=== PATIENT | male | born 1970 | race Caucasian/White ===

== ENCOUNTER 2021-11-11 20:16 | Inpatient (IN) ==
[2021-11-11] MEDS ORDERED: *HR* HYDROcodone/Acet 5/325 mg TABLET PO PRN (22:58)
[2021-11-11] MEDS ORDERED: Naloxone 0.4 MG/ML INJ IVP PRN (22:58)
[2021-11-11] MEDS ORDERED: D5% in Water 1,000 ML IVC PRN (23:05)
[2021-11-11] MEDS ORDERED: Dextrose Gel 15 GM/37.5 ML TUBE PO PRN ×2 (23:05)
[2021-11-11] MEDS ORDERED: *HR* Dextrose 50 % in Water (Syg) 50 ML SYRINGE IVP PRN (23:05)
[2021-11-11] MEDS ORDERED: Insulin DETEMIR 100 UNIT/ML X5UNITS SUBQ SCH (23:45)
[2021-11-12] MEDS: Melatonin 3 MG TABLET PO PRN ×2 (00:10→21:01)
[2021-11-12] MEDS: NIFEdipine XL (24 HR) 60 MG TAB.ER.24 PO SCH ×2 (00:10→06:19)
[2021-11-12 00:54] LABS: Amphetamine Screen,Urine Negative ng/mL (Cutoff=1000); Barbiturate Screen,Urine Negative ng/mL (Cutoff=200); Benzodiazepines Screen,Urine Negative ng/mL (Cutoff=200); Cannabinoid Screen,Urine Negative ng/mL (Cutoff = 50); Cocaine Screen,Urine Negative ng/mL (Cutoff= 300); Opiate Screen,Urine Negative ng/mL (Cutoff=300); Phencyclidine Screen,Urine Negative ng/mL (Cutoff=25)
[2021-11-12 01:05] LABS: Basophils # 0.1 K/mcL (0.0-0.2); Basophils % 1.2 %; Eosinophils # 0.2 K/mcL (0.0-0.6); Eosinophils % 3.2 %; Hematocrit 31.7 % (37.5-50.1); Hemoglobin 10.4 g/dL (12.9-16.9); Immature Granulocytes % 0.5 % (0-4); Lymphocytes # 1.3 K/mcL (0.6-4.6); Lymphocytes % 23.4 %; Mean Corpuscular HGB Conc 32.8 g/dL (31.6-35.5); Mean Corpuscular Volume 85.2 fL (83.0-100.0); Monocytes # 0.6 K/mcL (0.0-1.3); Neutrophils # 3.5 K/mcL (1.6-8.9); Platelet Count 250 K/mcL (140-400); Red Blood Count 3.72 M/mcL (4.19-5.50); Red Cell Distribution Width 12.8 % (11.5-14.5); Segmented Neutrophils % 61.7 %; White Blood Count 5.7 K/mcL (4.3-11.1)
[2021-11-12 01:14] LABS: INR 0.9; Prothrombin Time 9.7 Seconds (9.4-12.1)
[2021-11-12 01:15] LABS: Creatinine,Urine 25 mg/dL; Microalbumin,Urine > 1350 mg/L; Protein/Creatinine Ratio,Urine 14.24 mg/mg (0.00-0.20); Sodium, Urine 119.1 mEq/L
[2021-11-12 01:16] LABS: Activated Partial Thrombo Time 29.4 Seconds (26.0-36.0)
[2021-11-12 01:17] LABS: Albumin 2.3 g/dL (3.5-5.7); Albumin/Globulin Ratio 0.9 (1.1-2.2); Bilirubin,Total 0.3 mg/dL (0.3-1.0); Calcium 8.5 mg/dL (8.6-10.3); Chol/HDL Ratio 3.6 (0-4.9); Globulin 2.5 g/dL (2.4-3.5); Magnesium 1.8 mg/dL (1.6-2.6); Phosphorous 4.4 mg/dL (2.7-4.5); Potassium 4.9 mEq/L (3.5-5.1); Total Protein 4.8 g/dL (6.4-8.9)
[2021-11-12 01:38] LABS: Estimated Average Glucose 306 mg/dl; Hemoglobin A1C 12.3 %
[2021-11-12] MEDS: Ondansetron 4 MG/2 ML VIAL IVP PRN ×3 (03:20→21:01)
[2021-11-12] MEDS: Acetaminophen 325 MG TABLET PO PRN ×2 (06:22→21:13)
[2021-11-12] MEDS ORDERED: Insulin LISPRO 300 UNITS/3 ML VIAL SUBQ SCH (07:30)
[2021-11-12] MEDS: carvediloL 6.25 MG TABLET PO SCH ×2 (08:11→16:55)
[2021-11-12] MEDS ORDERED: Insulin DETEMIR 100 UNIT/ML X5UNITS SUBQ SCH (09:00)
[2021-11-12 11:33] LABS: Complement C3 109 mg/dL (87-200)
[2021-11-12 11:56] LABS: Vitamin D 25 Hydroxy 9 ng/mL (30-80)
[2021-11-12] MEDS: Insulin LISPRO 300 UNITS/3 ML VIAL SUBQ SCH ×2 (12:11→17:08)
[2021-11-12 12:35] LABS: Hepatitis B Surface Antigen Nonreactive (Nonreactive)
[2021-11-12 13:05] LABS: Hepatitis A Antibody IgM Nonreactive (Nonreactive); Hepatitis B Core IgM Nonreactive (Nonreactive)
[2021-11-12 13:06] LABS: Hepatitis C Virus Antibody Nonreactive (Nonreactive)
[2021-11-12] MEDS: Insulin DETEMIR 100 UNIT/ML X5UNITS SUBQ SCH (21:01)
[2021-11-12] MEDS ORDERED: Prochlorperazine 10 MG/2 ML VIAL IVP ONE (22:15)
[2021-11-13 07:06] LABS: Basophils # 0.1 K/mcL (0.0-0.2); Basophils % 1.2 %; Eosinophils # 0.2 K/mcL (0.0-0.6); Eosinophils % 3.1 %; Hematocrit 32.2 % (37.5-50.1); Hemoglobin 10.7 g/dL (12.9-16.9); Immature Granulocytes % 0.4 % (0-4); Lymphocytes # 0.9 K/mcL (0.6-4.6); Lymphocytes % 17.9 %; Mean Corpuscular HGB Conc 33.2 g/dL (31.6-35.5); Mean Corpuscular Hemoglobin 28.5 pg (28.0-33.3); Mean Corpuscular Volume 85.9 fL (83.0-100.0); Mean Platelet Volume 9.4 fL (9.4-12.4); Monocytes # 0.4 K/mcL (0.0-1.3); Monocytes % 7.2 %; Neutrophils # 3.6 K/mcL (1.6-8.9); Platelet Count 232 K/mcL (140-400); Red Blood Count 3.75 M/mcL (4.19-5.50); Red Cell Distribution Width 12.5 % (11.5-14.5); Segmented Neutrophils % 70.2 %; White Blood Count 5.1 K/mcL (4.3-11.1)
[2021-11-13 07:25] LABS: Calcium 8.6 mg/dL (8.6-10.3); Potassium 5.1 mEq/L (3.5-5.1)
[2021-11-13] MEDS: NIFEdipine XL (24 HR) 60 MG TAB.ER.24 PO SCH (07:30)
[2021-11-13] MEDS: Insulin LISPRO 300 UNITS/3 ML VIAL SUBQ SCH ×3 (07:30→16:51)
[2021-11-13] MEDS: carvediloL 6.25 MG TABLET PO SCH ×2 (07:30→16:52)
[2021-11-13] MEDS: Ondansetron 4 MG/2 ML VIAL IVP PRN ×2 (07:36→22:39)
[2021-11-13] MEDS: Insulin DETEMIR 100 UNIT/ML X5UNITS SUBQ SCH ×2 (07:41→22:41)
[2021-11-13] MEDS ORDERED: Ergocalciferol (VIT D2) 50,000 UNIT (1.25MG) CAP PO SCH (08:30)
[2021-11-13] MEDS ORDERED: hydrALAZINE 25 MG TABLET PO ONE (08:46)
[2021-11-13] MEDS ORDERED: Prochlorperazine 10 MG/2 ML VIAL IVP PRN (08:53)
[2021-11-13] MEDS ORDERED: Acetaminophen/Butalbital/CaffeineTABLET PO PRN (10:40)
[2021-11-13] MEDS ORDERED: 0.9 % Sodium Chloride 500 ML ONE (12:28)
[2021-11-13] MEDS ORDERED: *HR* Midazolam HCl 2 MG/2 ML VIAL ONE (12:38)
[2021-11-13] MEDS ORDERED: *HR* FentaNYL (PF) 100 MCG/2 ML VIAL ONE (12:38)
[2021-11-13] MEDS ORDERED: *HR* FentaNYL (PF) 100 MCG/2 ML VIAL IVP ONE (12:42)
[2021-11-13] MEDS ORDERED: *HR* Midazolam HCl 2 MG/2 ML VIAL IVP ONE (12:42)
[2021-11-13] MEDS: Melatonin 3 MG TABLET PO PRN (21:57)
[2021-11-13] MEDS: Acetaminophen 325 MG TABLET PO PRN (21:57)
[2021-11-13] MEDS: hydrALAZINE 25 MG TABLET PO SCH (21:58)
[2021-11-14 01:35] LABS: Hematocrit 31.3 % (37.5-50.1); Hemoglobin 10.4 g/dL (12.9-16.9); Mean Corpuscular HGB Conc 33.2 g/dL (31.6-35.5); Mean Corpuscular Hemoglobin 28.5 pg (28.0-33.3); Mean Corpuscular Volume 85.8 fL (83.0-100.0); Mean Platelet Volume 9.8 fL (9.4-12.4); Platelet Count 237 K/mcL (140-400); Red Blood Count 3.65 M/mcL (4.19-5.50); Red Cell Distribution Width 12.7 % (11.5-14.5); White Blood Count 5.5 K/mcL (4.3-11.1)
[2021-11-14 02:03] LABS: Calcium 8.4 mg/dL (8.6-10.3); Potassium 5.8 mEq/L (3.5-5.1)
[2021-11-14] MEDS: Insulin LISPRO 300 UNITS/3 ML VIAL SUBQ SCH ×3 (08:22→16:31)
[2021-11-14] MEDS: Insulin DETEMIR 100 UNIT/ML X5UNITS SUBQ SCH ×2 (08:22→22:03)
[2021-11-14] MEDS: NIFEdipine XL (24 HR) 60 MG TAB.ER.24 PO SCH (08:23)
[2021-11-14] MEDS: hydrALAZINE 25 MG TABLET PO SCH ×2 (08:23→22:03)
[2021-11-14] MEDS: carvediloL 6.25 MG TABLET PO SCH ×2 (08:23→16:32)
[2021-11-14 11:13] LABS: ANA IgG by ELISA NONE DETECTED (None Detected)
[2021-11-14] MEDS ORDERED: Mag Hydrox/Al Hydrox/Simeth 30 ML UDC PO PRN (11:38)
[2021-11-14 15:01] LABS: Kappa Qnt Free Light Chains 106.4 mg/L (3.30-19.40); Lambda Qnt Free Light Chains 69.01 mg/L (5.71-26.30)
[2021-11-14] MEDS: Melatonin 3 MG TABLET PO PRN (22:03)
[2021-11-15 06:16] LABS: Hematocrit 28.7 % (37.5-50.1); Hemoglobin 9.5 g/dL (12.9-16.9); Mean Corpuscular HGB Conc 33.1 g/dL (31.6-35.5); Mean Corpuscular Hemoglobin 28.4 pg (28.0-33.3); Mean Corpuscular Volume 85.7 fL (83.0-100.0); Mean Platelet Volume 9.8 fL (9.4-12.4); Platelet Count 221 K/mcL (140-400); Red Blood Count 3.35 M/mcL (4.19-5.50); Red Cell Distribution Width 12.7 % (11.5-14.5); White Blood Count 5.2 K/mcL (4.3-11.1)
[2021-11-15] MEDS: Acetaminophen 325 MG TABLET PO PRN (06:23)
[2021-11-15 06:34] LABS: Calcium 8.2 mg/dL (8.6-10.3); Potassium 5.3 mEq/L (3.5-5.1)
[2021-11-15] MEDS: hydrALAZINE 25 MG TABLET PO SCH ×2 (07:56→19:54)
[2021-11-15] MEDS: carvediloL 6.25 MG TABLET PO SCH ×2 (07:56→15:58)
[2021-11-15] MEDS: NIFEdipine XL (24 HR) 60 MG TAB.ER.24 PO SCH (07:56)
[2021-11-15] MEDS: Insulin DETEMIR 100 UNIT/ML X5UNITS SUBQ SCH ×2 (08:01→19:55)
[2021-11-15] MEDS: Insulin LISPRO 300 UNITS/3 ML VIAL SUBQ SCH ×3 (08:01→15:58)
[2021-11-15 18:43] LABS: ANCA IFA Titer <1:20 (<1:20)
[2021-11-15] MEDS: Melatonin 3 MG TABLET PO PRN (19:54)
[2021-11-16 01:22] LABS: Hematocrit 27.2 % (37.5-50.1); Mean Corpuscular HGB Conc 33.1 g/dL (31.6-35.5); Mean Corpuscular Hemoglobin 28.3 pg (28.0-33.3); Mean Corpuscular Volume 85.5 fL (83.0-100.0); Platelet Count 209 K/mcL (140-400); Red Blood Count 3.18 M/mcL (4.19-5.50); Red Cell Distribution Width 12.3 % (11.5-14.5); White Blood Count 4.8 K/mcL (4.3-11.1)
[2021-11-16 01:38] LABS: Calcium 8.1 mg/dL (8.6-10.3); Potassium 5.4 mEq/L (3.5-5.1)
[2021-11-16 06:29] LABS: ANCA IFA Pattern NONE DETECTED (None Detected); Serine Protease-3 Antibody 2 AU/mL (0-19)
[2021-11-16 07:31] VITALS: BP 165/84; PULSE 81; TEMP 98.2; O2SAT 98
[2021-11-16] MEDS: Insulin LISPRO 300 UNITS/3 ML VIAL SUBQ SCH (07:58)
[2021-11-16] MEDS ORDERED: SODIUM ZIRCONIUM CYCLOSILICATE 5 GM POWD.PACK PO ONE (08:44)
[2021-11-16] MEDS: hydrALAZINE 25 MG TABLET PO SCH (09:10)
[2021-11-16] MEDS: NIFEdipine XL (24 HR) 60 MG TAB.ER.24 PO SCH (09:10)
[2021-11-16] MEDS: carvediloL 6.25 MG TABLET PO SCH (09:10)
[2021-11-16] MEDS: Insulin DETEMIR 100 UNIT/ML X5UNITS SUBQ SCH ×2 (09:11→09:18)
[2021-11-19 08:48] LABS: Alpha 2 Globulin (PEP) 0.85 g/dL (0.48-1.05); Beta Globulin (PEP) 0.55 g/dL (0.48-1.10)
[2021-11-19 10:00] LABS: IFE Reflexed IFE Done; Immunoglobulin A 146 mg/dL (68-408); Immunoglobulin G 452 mg/dL (768-1632); Immunoglobulin M 79 mg/dL (35-263)
[2021-11-22 02:42] LABS: APTT (LE Anticoag) 37 sec (32-48); Diluted Russell Viper Venom 32 sec (33-44); PT (LE-Anticoag) 12.8 sec (12.0-15.5)
== END 2021-11-16 10:26 | disposition home or self-care (01) | DRG 304 ==
LOC: 2ANU → SUATTDRO 22:11
PROVIDERS: ADMIT Internal Medicine; ATTEND Family Medicine

== ENCOUNTER 2022-02-11 21:08 | Inpatient (IN) ==
[2022-02-12] MEDS ORDERED: Melatonin 3 MG TABLET PO PRN (05:41)
[2022-02-12] MEDS ORDERED: Ondansetron ODT 4 MG TAB.RAPDIS SL PRN (05:41)
[2022-02-12] MEDS ORDERED: Naloxone 0.4 MG/ML INJ IVP PRN (05:41)
[2022-02-12] MEDS ORDERED: *HR* Dextrose 50 % in Water (Syg) 50 ML SYRINGE IVP PRN (05:46)
[2022-02-12] MEDS ORDERED: Dextrose Gel 15 GM/37.5 ML TUBE PO PRN ×2 (05:46)
[2022-02-12] MEDS ORDERED: D5% in Water 1,000 ML IVC PRN (05:46)
[2022-02-12] MEDS ORDERED: Ondansetron 4 MG/2 ML VIAL IVP PRN (05:47)
[2022-02-12 06:39] LABS: Basophils % 1.1 %; Eosinophils # 0.1 K/mcL (0.0-0.6); Eosinophils % 2.6 %; Hematocrit 29.5 % (37.5-50.1); Hemoglobin 9.8 g/dL (12.9-16.9); Immature Granulocytes % 0.4 % (0-4); Lymphocytes # 0.4 K/mcL (0.6-4.6); Lymphocytes % 15.3 %; Mean Corpuscular HGB Conc 33.2 g/dL (31.6-35.5); Mean Corpuscular Hemoglobin 27.5 pg (28.0-33.3); Mean Corpuscular Volume 82.9 fL (83.0-100.0); Mean Platelet Volume 9.8 fL (9.4-12.4); Monocytes # 0.4 K/mcL (0.0-1.3); Monocytes % 13.9 %; Neutrophils # 1.8 K/mcL (1.6-8.9); Platelet Count 169 K/mcL (140-400); Red Blood Count 3.56 M/mcL (4.19-5.50); Red Cell Distribution Width 13.3 % (11.5-14.5); Segmented Neutrophils % 66.7 %; White Blood Count 2.7 K/mcL (4.3-11.1)
[2022-02-12] MEDS: NIFEdipine XL (24 HR) 60 MG TAB.ER.24 PO SCH (06:52)
[2022-02-12] MEDS: cloNIDine HCL 0.1 MG TABLET PO SCH ×4 (06:52→20:52)
[2022-02-12 07:00] LABS: Alanine Aminotransferase 18 Units/L (7-52); Albumin 2.1 g/dL (3.5-5.7); Albumin/Globulin Ratio 0.9 (1.1-2.2); Alkaline Phosphatase 106 Units/L (34-104); Aspartate Amino Transferase 18 Units/L (13-39); BUN/Creatinine Ratio 15 (6-26); Bilirubin,Total 0.2 mg/dL (0.3-1.0); Blood Urea Nitrogen 33 mg/dL (6-20); Calcium 7.7 mg/dL (8.6-10.3); Carbon Dioxide 23 mEq/L (23-29); Chloride 107 mEq/L (98-107); Globulin 2.3 g/dL (2.4-3.5); Glucose 243 mg/dL (70-105); Magnesium 1.8 mg/dL (1.6-2.6); Osmolality,Calculated 295 (280-300); Potassium 3.7 mEq/L (3.5-5.1); Sodium 135 mEq/L (136-145); Total Protein 4.4 g/dL (6.4-8.9); Troponin I < 0.03 ng/mL (< 0.04)
[2022-02-12] MEDS ORDERED: Albumin 25% 25gram/100mL 25 GM/100 ML IV.SOLN IVPB ONE (07:03)
[2022-02-12] MEDS: Insulin LISPRO 300 UNITS/3 ML VIAL SUBQ SCH ×4 (07:52→20:52)
[2022-02-12] MEDS: Aspirin 81 MG TAB.CHEW PO SCH (07:54)
[2022-02-12] MEDS ORDERED: hydrALAZINE 25 MG TABLET PO PRN (08:22)
[2022-02-12] MEDS: carvediloL 25 MG TABLET PO SCH ×2 (08:44→17:08)
[2022-02-12] MEDS: Insulin DETEMIR 100 UNIT/ML X5UNITS SUBQ SCH ×2 (09:25→20:53)
[2022-02-12] MEDS ORDERED: GI Cocktail 40 ML EACH PO ONE (10:00)
[2022-02-12] MEDS: Furosemide 40 MG TABLET PO SCH ×2 (10:46→17:03)
[2022-02-12 12:12] LABS: Bilirubin,Urine Negative (Negative); Blood,Urine Small (Negative); Clarity,Urine Clear (Clear); Color,Urine Light-Yellow (Yellow); Glucose,Urine (UA) >=1000 mg/dL (Normal); Hyaline Casts,Urine Few per lpf (None Seen); Ketones,Urine Negative (Negative); Leukocyte Esterase,Urine Negative (Negative); Mucus,Urine Few per lpf (None-Few); Nitrite,Urine Negative (Negative); PH,Urine 6.5 pH Units (5.0-8.0); Protein,Urine >=600 mg/dL (Neg-Trace); RBC,Urine 0-3 per hpf (0-3); Specific Gravity,Urine 1.014 (1.010-1.025); Squamous Epithelial Cell,Urine Few per hpf (None-Few); Urobilinogen,Urine Normal (Normal); WBC,Urine 0-3 per hpf (0-3)
[2022-02-12] MEDS: Acetaminophen 325 MG TABLET PO PRN (12:39)
[2022-02-12] MEDS: *HR* Heparin 5,000 UNIT/ML VIAL SQ SCH ×2 (12:40→20:53)
[2022-02-12 12:46] LABS: Sodium, Urine 67.8 mEq/L
[2022-02-12] MEDS: Albumin 25% 25gram/100mL 25 GM/100 ML IV.SOLN IVPB SCH ×2 (15:50→23:43)
[2022-02-12] MEDS: Ondansetron 4 MG/2 ML VIAL IVP PRN (15:54)
[2022-02-12] MEDS: hydrALAZINE 25 MG TABLET PO SCH ×2 (17:08→23:43)
[2022-02-12] MEDS: Pantoprazole 40 MG VIAL IVP SCH (17:26)
[2022-02-12] MEDS: *HR* Promethazine 25 MG/ML VIAL IM PRN (20:50)
[2022-02-12] MEDS ORDERED: carvediloL 6.25 MG TABLET PO SCH (21:00)
[2022-02-13 03:55] LABS: Basophils % 0.3 %; Hemoglobin 9.1 g/dL (12.9-16.9); Immature Granulocytes % 0.3 % (0-4); Lymphocytes # 0.2 K/mcL (0.6-4.6); Lymphocytes % 6.7 %; Mean Corpuscular HGB Conc 33.7 g/dL (31.6-35.5); Mean Corpuscular Hemoglobin 28.3 pg (28.0-33.3); Mean Corpuscular Volume 84.1 fL (83.0-100.0); Mean Platelet Volume 10.6 fL (9.4-12.4); Monocytes # 0.3 K/mcL (0.0-1.3); Monocytes % 8.8 %; Neutrophils # 2.9 K/mcL (1.6-8.9); Platelet Count 149 K/mcL (140-400); Red Blood Count 3.21 M/mcL (4.19-5.50); Red Cell Distribution Width 13.3 % (11.5-14.5); Segmented Neutrophils % 83.9 %; White Blood Count 3.4 K/mcL (4.3-11.1)
[2022-02-13 04:21] LABS: Albumin 2.4 g/dL (3.5-5.7); Albumin/Globulin Ratio 1.1 (1.1-2.2); Bilirubin,Total 0.2 mg/dL (0.3-1.0); Calcium 7.6 mg/dL (8.6-10.3); Globulin 2.1 g/dL (2.4-3.5); Potassium 3.9 mEq/L (3.5-5.1); Total Protein 4.5 g/dL (6.4-8.9)
[2022-02-13] MEDS: *HR* Heparin 5,000 UNIT/ML VIAL SQ SCH ×3 (05:16→21:41)
[2022-02-13] MEDS: Acetaminophen 325 MG TABLET PO PRN ×2 (09:00→17:02)
[2022-02-13] MEDS: NIFEdipine XL (24 HR) 60 MG TAB.ER.24 PO SCH (09:00)
[2022-02-13] MEDS: hydrALAZINE 25 MG TABLET PO SCH ×3 (09:00→23:41)
[2022-02-13] MEDS: *HR* Promethazine 25 MG/ML VIAL IM PRN ×2 (09:01→17:02)
[2022-02-13] MEDS: Aspirin 81 MG TAB.CHEW PO SCH (09:01)
[2022-02-13] MEDS: carvediloL 25 MG TABLET PO SCH ×2 (09:01→16:56)
[2022-02-13] MEDS: Furosemide 40 MG TABLET PO SCH ×2 (09:01→16:57)
[2022-02-13] MEDS: cloNIDine HCL 0.1 MG TABLET PO SCH ×3 (09:01→21:16)
[2022-02-13] MEDS: Pantoprazole 40 MG VIAL IVP SCH (09:01)
[2022-02-13] MEDS: Insulin LISPRO 300 UNITS/3 ML VIAL SUBQ SCH ×4 (09:02→21:40)
[2022-02-13] MEDS: Albumin 25% 25gram/100mL 25 GM/100 ML IV.SOLN IVPB SCH (09:03)
[2022-02-13] MEDS: Insulin DETEMIR 100 UNIT/ML X5UNITS SUBQ SCH ×2 (09:30→21:40)
[2022-02-13 10:58] LABS: % Iron Saturation 8 % (20-55); Iron 12 mcg/dL (65-175); Transferrin 112 mg/dL (203-362)
[2022-02-13 11:16] LABS: Ferritin 274 ng/mL (20-250)
[2022-02-13 11:58] LABS: Estimated Average Glucose 217 mg/dl; Hemoglobin A1C 9.2 %
[2022-02-13] MEDS ORDERED: 0.9 % Sodium Chloride 500 ML IVC ONE (21:16)
[2022-02-13] MEDS: Ondansetron 4 MG/2 ML VIAL IVP PRN (22:52)
[2022-02-14] MEDS ORDERED: traZODone 50 MG TABLET PO ONE (00:19)
[2022-02-14 03:01] LABS: Basophils % 0.6 %; Eosinophils % 0.6 %; Hematocrit 24.6 % (37.5-50.1); Hemoglobin 8.2 g/dL (12.9-16.9); Immature Granulocytes % 0.3 % (0-4); Lymphocytes # 0.5 K/mcL (0.6-4.6); Lymphocytes % 16.5 %; Mean Corpuscular HGB Conc 33.3 g/dL (31.6-35.5); Mean Corpuscular Hemoglobin 28.3 pg (28.0-33.3); Mean Corpuscular Volume 84.8 fL (83.0-100.0); Mean Platelet Volume 10.9 fL (9.4-12.4); Monocytes # 0.3 K/mcL (0.0-1.3); Monocytes % 10.5 %; Neutrophils # 2.3 K/mcL (1.6-8.9); Platelet Count 149 K/mcL (140-400); Red Cell Distribution Width 13.5 % (11.5-14.5); Segmented Neutrophils % 71.5 %; White Blood Count 3.2 K/mcL (4.3-11.1)
[2022-02-14 03:24] LABS: Calcium 7.4 mg/dL (8.6-10.3); Magnesium 1.9 mg/dL (1.6-2.6)
[2022-02-14] MEDS: Acetaminophen 325 MG TABLET PO PRN (04:01)
[2022-02-14] MEDS: *HR* Heparin 5,000 UNIT/ML VIAL SQ SCH ×2 (06:15→13:16)
[2022-02-14] MEDS: Insulin LISPRO 300 UNITS/3 ML VIAL SUBQ SCH ×2 (08:20→13:04)
[2022-02-14] MEDS: carvediloL 25 MG TABLET PO SCH (08:21)
[2022-02-14] MEDS: Furosemide 40 MG TABLET PO SCH (08:21)
[2022-02-14] MEDS: NIFEdipine XL (24 HR) 60 MG TAB.ER.24 PO SCH (08:21)
[2022-02-14] MEDS: hydrALAZINE 25 MG TABLET PO SCH (08:21)
[2022-02-14] MEDS: Aspirin 81 MG TAB.CHEW PO SCH (08:21)
[2022-02-14] MEDS: cloNIDine HCL 0.1 MG TABLET PO SCH ×2 (08:21→13:16)
[2022-02-14] MEDS: Pantoprazole 40 MG VIAL IVP SCH (08:23)
[2022-02-14] MEDS: Insulin DETEMIR 100 UNIT/ML X5UNITS SUBQ SCH (08:40)
[2022-02-14] MEDS ORDERED: polyethylene glycoL 3350 17 GM POWD.PACK PO SCH (09:00)
[2022-02-14] MEDS ORDERED: Albumin 25% 25gram/100mL 25 GM/100 ML IV.SOLN IVPB SCH (09:03)
[2022-02-14] MEDS ORDERED: Sodium Bicarbonate 75 MEQ in 0.45 % Sodium Chloride 1,000 ML IVC SCH (09:15)
[2022-02-14 10:13] VITALS: BP 144/80; PULSE 67; TEMP 97.9; O2SAT 98
[2022-02-14] MEDS ORDERED: ALPRAZolam 0.5 MG TABLET PO ONE (13:53)
== END 2022-02-14 14:53 | disposition left against medical advice (07) | DRG 305 ==
LOC: 3BNU → SUATTDRO 02-12 04:57
PROVIDERS: ADMIT Internal Medicine; ATTEND Internal Medicine

== ENCOUNTER 2022-02-17 03:50 | Inpatient (IN) ==
[2022-02-17] MEDS ORDERED: Melatonin 3 MG TABLET PO PRN (06:28)
[2022-02-17] MEDS ORDERED: Acetaminophen 325 MG TABLET PO PRN (06:28)
[2022-02-17] MEDS ORDERED: Naloxone 0.4 MG/ML INJ IVP PRN (06:28)
[2022-02-17] MEDS: niCARdipine 20 MG/200 ML MLS IVC SCH ×4 (06:45→23:35)
[2022-02-17] MEDS: Ondansetron 4 MG/2 ML VIAL IVP PRN ×2 (06:45→20:27)
[2022-02-17] MEDS ORDERED: Dextrose Gel 15 GM/37.5 ML TUBE PO PRN ×2 (08:20)
[2022-02-17] MEDS ORDERED: D5% in Water 1,000 ML IVC PRN (08:20)
[2022-02-17] MEDS ORDERED: *HR* Dextrose 50 % in Water (Syg) 50 ML SYRINGE IVP PRN (08:20)
[2022-02-17] MEDS: Insulin LISPRO 300 UNITS/3 ML VIAL SUBQ SCH ×4 (09:01→23:07)
[2022-02-17 09:04] LABS: Basophils # 0.1 K/mcL (0.0-0.2); Basophils % 0.4 %; Eosinophils % 0.1 %; Hematocrit 33.1 % (37.5-50.1); Immature Granulocytes % 0.7 % (0-4); Lymphocytes # 1.3 K/mcL (0.6-4.6); Lymphocytes % 9.6 %; Mean Corpuscular HGB Conc 34.1 g/dL (31.6-35.5); Mean Corpuscular Hemoglobin 27.7 pg (28.0-33.3); Mean Corpuscular Volume 81.1 fL (83.0-100.0); Mean Platelet Volume 10.1 fL (9.4-12.4); Monocytes # 1.1 K/mcL (0.0-1.3); Monocytes % 7.9 %; Neutrophils # 11.2 K/mcL (1.6-8.9); Platelet Count 199 K/mcL (140-400); Red Blood Count 4.08 M/mcL (4.19-5.50); Red Cell Distribution Width 13.1 % (11.5-14.5); Segmented Neutrophils % 81.3 %
[2022-02-17] MEDS ORDERED: *HR* Promethazine 25 MG/ML VIAL IM ONE (09:09)
[2022-02-17 09:11] LABS: INR 1.1; Prothrombin Time 12.1 Seconds (9.4-12.1)
[2022-02-17 09:25] LABS: Magnesium 1.9 mg/dL (1.6-2.6); Potassium 3.4 mEq/L (3.5-5.1)
[2022-02-17 09:39] LABS: Hemoglobin 11.3 g/dL (12.9-16.9); White Blood Count 13.8 K/mcL (4.3-11.1)
[2022-02-17 10:09] LABS: Troponin I 0.07 ng/mL (< 0.04)
[2022-02-17 10:19] LABS: Platelet Estimate Normal (Normal); Reactive Lymphocytes Present (Not Present)
[2022-02-17 13:50] LABS: Adenovirus F 40/41 PCR Not detected (Not detect); Astrovirus PCR Not detected (Not detect); C.difficile Toxin A/B Gene PCR Not detected (Not detect); Campylobacter by PCR Not detected (Not detect); Cryptosporidium by PCR Not detected (Not detect); Cyclospora cayetanensis PCR Not detected (Not detect); Entamoeba histolytica PCR Not detected (Not detect); Enteroaggregative E.coli(EAEC) Not detected (Not detect); Enteropathogenic E.coli(EPEC) Not detected (Not detect); Enterotoxigenic E.coli (ETEC) Not detected (Not detect); Giardia lamblia PCR Not detected (Not detect); Norovirus GI/GII PCR Not detected (Not detect); Plesiomonas shigelloides PCR Not detected (Not detect); Rotavirus A PCR Not detected (Not detect); Salmonella PCR Not detected (Not detect); Sapovirus PCR Not detected (Not detect); Shig/EnteroinvasiveE coli EIEC Not detected (Not detect); Shigalike tox-prod E coli STEC Not detected (Not detect); Vibrio PCR Not detected (Not detect); Vibrio cholerae PCR Not detected (Not detect); Yersinia enterocolitica PCR Not detected (Not detect)
[2022-02-17] MEDS: *HR* Heparin 5,000 UNIT/ML VIAL SQ SCH (18:33)
[2022-02-17] MEDS ORDERED: *HR* HYDROmorphone (PF) 1 MG/ML SYRINGE IVP ONE (18:50)
[2022-02-17] MEDS ORDERED: *HR* HYDROmorphone (PF) 1 MG/ML SYRINGE ONE (19:00)
[2022-02-18] MEDS: niCARdipine 20 MG/200 ML MLS IVC SCH ×7 (02:17→19:23)
[2022-02-18] MEDS: Ondansetron 4 MG/2 ML VIAL IVP PRN ×2 (04:47→17:07)
[2022-02-18] MEDS: *HR* Heparin 5,000 UNIT/ML VIAL SQ SCH ×2 (06:50→17:00)
[2022-02-18] MEDS: Insulin LISPRO 300 UNITS/3 ML VIAL SUBQ SCH ×4 (09:35→19:32)
[2022-02-18] MEDS ORDERED: GI Cocktail 40 ML EACH PO ONE (10:45)
[2022-02-18] MEDS: Pantoprazole 40 MG VIAL IVP SCH (16:59)
[2022-02-18] MEDS ORDERED: polyethylene glycoL 3350 17 GM POWD.PACK PO PRN (20:03)
[2022-02-18] MEDS: carvediloL 25 MG TABLET PO SCH (20:28)
[2022-02-19] MEDS: niCARdipine 20 MG/200 ML MLS IVC SCH ×6 (00:38→21:38)
[2022-02-19] MEDS: Ondansetron 4 MG/2 ML VIAL IVP PRN ×3 (01:09→23:43)
[2022-02-19 02:04] LABS: Basophils % 0.3 %; Eosinophils % 0.4 %; Hematocrit 25.5 % (37.5-50.1); Immature Granulocytes % 0.8 % (0-4); Lymphocytes # 0.8 K/mcL (0.6-4.6); Lymphocytes % 8.7 %; Mean Corpuscular HGB Conc 33.3 g/dL (31.6-35.5); Mean Corpuscular Hemoglobin 27.7 pg (28.0-33.3); Mean Corpuscular Volume 83.1 fL (83.0-100.0); Mean Platelet Volume 9.6 fL (9.4-12.4); Monocytes % 10.7 %; Platelet Count 205 K/mcL (140-400); Red Blood Count 3.07 M/mcL (4.19-5.50); Red Cell Distribution Width 13.2 % (11.5-14.5); Segmented Neutrophils % 79.1 %; White Blood Count 8.9 K/mcL (4.3-11.1)
[2022-02-19 02:09] LABS: Hemoglobin 8.5 g/dL (12.9-16.9)
[2022-02-19 02:25] LABS: Albumin 1.9 g/dL (3.5-5.7); Calcium 7.3 mg/dL (8.6-10.3); Phosphorous 4.7 mg/dL (2.7-4.5); Potassium 3.3 mEq/L (3.5-5.1)
[2022-02-19] MEDS: Pantoprazole 40 MG VIAL IVP SCH ×2 (05:49→17:32)
[2022-02-19] MEDS: *HR* Heparin 5,000 UNIT/ML VIAL SQ SCH ×2 (05:49→17:37)
[2022-02-19] MEDS ORDERED: *HR* Promethazine 25 MG/ML VIAL IM ONE (08:16)
[2022-02-19 08:32] LABS: Hematocrit 25.3 % (37.5-50.1); Hemoglobin 8.4 g/dL (12.9-16.9)
[2022-02-19] MEDS: Insulin LISPRO 300 UNITS/3 ML VIAL SUBQ SCH ×4 (08:53→20:59)
[2022-02-19] MEDS: NIFEdipine XL (24 HR) 60 MG TAB.ER.24 PO SCH (10:49)
[2022-02-19] MEDS: Albumin 25% 25gram/100mL 25 GM/100 ML IV.SOLN IVPB SCH ×3 (10:50→23:43)
[2022-02-19] MEDS: carvediloL 25 MG TABLET PO SCH ×2 (10:57→17:32)
[2022-02-19] MEDS ORDERED: *HR* HYDROmorphone (PF) 1 MG/ML SYRINGE IVP ONE (12:27)
[2022-02-20] MEDS: niCARdipine 20 MG/200 ML MLS IVC SCH ×6 (03:16→20:08)
[2022-02-20 03:22] LABS: Basophils % 0.2 %; Eosinophils # 0.1 K/mcL (0.0-0.6); Eosinophils % 0.6 %; Hemoglobin 7.9 g/dL (12.9-16.9); Immature Granulocytes % 0.7 % (0-4); Lymphocytes # 0.8 K/mcL (0.6-4.6); Lymphocytes % 6.9 %; Mean Corpuscular HGB Conc 32.9 g/dL (31.6-35.5); Mean Corpuscular Hemoglobin 27.8 pg (28.0-33.3); Mean Corpuscular Volume 84.5 fL (83.0-100.0); Mean Platelet Volume 10.1 fL (9.4-12.4); Monocytes % 9.3 %; Platelet Count 233 K/mcL (140-400); Red Blood Count 2.84 M/mcL (4.19-5.50); Red Cell Distribution Width 13.2 % (11.5-14.5); Segmented Neutrophils % 82.3 %; White Blood Count 10.9 K/mcL (4.3-11.1)
[2022-02-20 03:38] LABS: Albumin 2.6 g/dL (3.5-5.7); Calcium 7.8 mg/dL (8.6-10.3); Magnesium 2.2 mg/dL (1.6-2.6); Phosphorous 4.9 mg/dL (2.7-4.5); Potassium 3.6 mEq/L (3.5-5.1)
[2022-02-20] MEDS: Acetaminophen 325 MG TABLET PO PRN ×2 (04:53→21:43)
[2022-02-20] MEDS: Pantoprazole 40 MG VIAL IVP SCH ×2 (04:54→17:36)
[2022-02-20] MEDS: Albumin 25% 25gram/100mL 25 GM/100 ML IV.SOLN IVPB SCH ×2 (07:39→17:39)
[2022-02-20] MEDS: NIFEdipine XL (24 HR) 60 MG TAB.ER.24 PO SCH (07:39)
[2022-02-20] MEDS: carvediloL 25 MG TABLET PO SCH ×2 (07:39→17:37)
[2022-02-20] MEDS: Ondansetron 4 MG/2 ML VIAL IVP PRN ×2 (07:49→21:40)
[2022-02-20] MEDS ORDERED: *HR* Promethazine 25 MG/ML VIAL IM ONE (08:44)
[2022-02-20] MEDS ORDERED: *HR* FentaNYL (PF) 100 MCG/2 ML VIAL ONE (11:01)
[2022-02-20] MEDS ORDERED: Lidocaine -MPF 2% 5 ML VIAL ONE (11:01)
[2022-02-20] MEDS ORDERED: *HR* Succinylcholine 200 MG/10 ML VIAL IVP ONE (11:01)
[2022-02-20] MEDS ORDERED: *HR* Rocuronium Bromide 50 MG/5 ML VIAL ONE (11:02)
[2022-02-20] MEDS ORDERED: Lidocaine HCL 4 ML Topical Solution (Laryng-O-Jet Kit Sterile Pak) TP ONE (11:17)
[2022-02-20] MEDS ORDERED: Ondansetron 4 MG/2 ML VIAL ONE (11:31)
[2022-02-20] MEDS: Insulin LISPRO 300 UNITS/3 ML VIAL SUBQ SCH ×4 (12:56→21:44)
[2022-02-20] MEDS: Fluconazole 400 MG/200 ML 400 MG/200 ML BAG IVPB SCH (15:10)
[2022-02-21] MEDS: Albumin 25% 25gram/100mL 25 GM/100 ML IV.SOLN IVPB SCH (01:15)
[2022-02-21] MEDS: niCARdipine 20 MG/200 ML MLS IVC SCH ×2 (01:16→05:44)
[2022-02-21 02:19] LABS: Basophils % 0.2 %; Hematocrit 25.9 % (37.5-50.1); Hemoglobin 8.5 g/dL (12.9-16.9); Immature Granulocytes % 1.6 % (0-4); Lymphocytes # 0.5 K/mcL (0.6-4.6); Lymphocytes % 3.4 %; Mean Corpuscular HGB Conc 32.8 g/dL (31.6-35.5); Mean Corpuscular Hemoglobin 27.4 pg (28.0-33.3); Mean Corpuscular Volume 83.5 fL (83.0-100.0); Monocytes # 0.5 K/mcL (0.0-1.3); Monocytes % 3.4 %; Neutrophils # 14.1 K/mcL (1.6-8.9); Platelet Count 270 K/mcL (140-400); Red Cell Distribution Width 13.2 % (11.5-14.5); Segmented Neutrophils % 91.4 %; White Blood Count 15.4 K/mcL (4.3-11.1)
[2022-02-21 02:31] LABS: Albumin 2.8 g/dL (3.5-5.7); BUN/Creatinine Ratio 12 (6-26); Blood Urea Nitrogen 58 mg/dL (6-20); Calcium 7.9 mg/dL (8.6-10.3); Carbon Dioxide 18 mEq/L (23-29); Chloride 100 mEq/L (98-107); Glucose 306 mg/dL (70-105); Osmolality,Calculated 300 (280-300); Phosphorous 6.3 mg/dL (2.7-4.5); Potassium 4.2 mEq/L (3.5-5.1); Sodium 131 mEq/L (136-145)
[2022-02-21] MEDS: Pantoprazole 40 MG VIAL IVP SCH ×2 (05:29→16:23)
[2022-02-21] MEDS: carvediloL 25 MG TABLET PO SCH ×2 (09:07→15:22)
[2022-02-21] MEDS: NIFEdipine XL (24 HR) 60 MG TAB.ER.24 PO SCH (09:08)
[2022-02-21] MEDS: Fluconazole 400 MG/200 ML 400 MG/200 ML BAG IVPB SCH (09:10)
[2022-02-21] MEDS: Insulin LISPRO 300 UNITS/3 ML VIAL SUBQ SCH ×4 (09:17→19:50)
[2022-02-21] MEDS ORDERED: hydrOXYzine pamoate 25 MG CAPSULE PO PRN (10:01)
[2022-02-21] MEDS: Ondansetron 4 MG/2 ML VIAL IVP PRN ×2 (10:50→18:18)
[2022-02-21 11:07] LABS: Iron 73 mcg/dL (65-175); Transferrin < 75 mg/dL (203-362)
[2022-02-21] MEDS ORDERED: hydrOXYzine pamoate 25 MG CAPSULE PO ONE (12:12)
[2022-02-21] MEDS: Insulin DETEMIR 100 UNIT/ML X5UNITS SUBQ SCH (12:26)
[2022-02-21] MEDS ORDERED: *HR* Heparin 5,000 UNIT/ML VIAL ONE (13:12)
[2022-02-21] MEDS: Fluconazole 200 MG/100 ML IVPB SCH (14:28)
[2022-02-21] MEDS: cefTRIAXone 1,000 MG in 0.9 % Sodium Chloride Mini Bag 100 ML IVPB SCH (15:22)
[2022-02-21] MEDS: hydrALAZINE 25 MG TABLET PO SCH (15:22)
[2022-02-21 15:46] LABS: Hepatitis B Surface Antibody < 3.10 mIU/mL
[2022-02-21 15:56] LABS: Hepatitis B Surface Antigen Nonreactive (Nonreactive)
[2022-02-21] MEDS: Calcium Acetate 667 MG CAPSULE PO SCH (16:22)
[2022-02-22] MEDS: hydrALAZINE 25 MG TABLET PO SCH ×3 (00:27→18:28)
[2022-02-22 03:47] LABS: Basophils % 0.2 %; Eosinophils # 0.1 K/mcL (0.0-0.6); Eosinophils % 0.3 %; Hematocrit 24.7 % (37.5-50.1); Hemoglobin 8.4 g/dL (12.9-16.9); Immature Granulocytes % 2.5 % (0-4); Lymphocytes # 0.7 K/mcL (0.6-4.6); Lymphocytes % 3.8 %; Mean Corpuscular Hemoglobin 28.3 pg (28.0-33.3); Mean Corpuscular Volume 83.2 fL (83.0-100.0); Mean Platelet Volume 9.9 fL (9.4-12.4); Monocytes # 1.4 K/mcL (0.0-1.3); Monocytes % 7.5 %; Neutrophils # 16.4 K/mcL (1.6-8.9); Platelet Count 313 K/mcL (140-400); Red Blood Count 2.97 M/mcL (4.19-5.50); Red Cell Distribution Width 13.2 % (11.5-14.5); Segmented Neutrophils % 85.7 %; White Blood Count 19.1 K/mcL (4.3-11.1)
[2022-02-22 04:06] LABS: Albumin 2.8 g/dL (3.5-5.7); Magnesium 2.2 mg/dL (1.6-2.6); Phosphorous 5.9 mg/dL (2.7-4.5); Potassium 3.9 mEq/L (3.5-5.1)
[2022-02-22] MEDS: Pantoprazole 40 MG VIAL IVP SCH ×2 (05:01→16:57)
[2022-02-22] MEDS ORDERED: 0.9 % Sodium Chloride 250 ML IVC PRN (08:12)
[2022-02-22] MEDS ORDERED: *HR* Heparin 10,000 UNIT/10 ML VIAL IV PRN ×2 (08:12)
[2022-02-22] MEDS ORDERED: 0.9 % Sodium Chloride 2,000 ML PRIME SCH (08:15)
[2022-02-22] MEDS: Insulin LISPRO 300 UNITS/3 ML VIAL SUBQ SCH ×4 (08:20→21:40)
[2022-02-22] MEDS: Calcium Acetate 667 MG CAPSULE PO SCH ×3 (10:12→16:58)
[2022-02-22] MEDS ORDERED: Darbepoetin 100 MCG/0.5 ML SYRINGE SQ SCH (12:00)
[2022-02-22] MEDS: carvediloL 25 MG TABLET PO SCH ×2 (14:05→18:28)
[2022-02-22] MEDS: NIFEdipine XL (24 HR) 60 MG TAB.ER.24 PO SCH (14:06)
[2022-02-22] MEDS: Insulin DETEMIR 100 UNIT/ML X5UNITS SUBQ SCH (14:06)
[2022-02-22] MEDS: Fluconazole 200 MG/100 ML IVPB SCH (14:22)
[2022-02-22] MEDS: cefTRIAXone 1,000 MG in 0.9 % Sodium Chloride Mini Bag 100 ML IVPB SCH (14:23)
[2022-02-22] MEDS: Ondansetron 4 MG/2 ML VIAL IVP PRN (15:17)
[2022-02-22] MEDS: Acetaminophen 325 MG TABLET PO PRN (16:57)
[2022-02-23] MEDS: hydrALAZINE 25 MG TABLET PO SCH ×2 (01:30→08:26)
[2022-02-23 05:16] LABS: Basophils % 0.3 %; Eosinophils # 0.2 K/mcL (0.0-0.6); Eosinophils % 0.9 %; Hematocrit 23.6 % (37.5-50.1); Hemoglobin 7.6 g/dL (12.9-16.9); Immature Granulocytes % 1.7 % (0-4); Lymphocytes # 0.7 K/mcL (0.6-4.6); Lymphocytes % 4.2 %; Mean Corpuscular HGB Conc 32.2 g/dL (31.6-35.5); Mean Platelet Volume 9.8 fL (9.4-12.4); Monocytes # 1.2 K/mcL (0.0-1.3); Monocytes % 7.4 %; Neutrophils # 13.6 K/mcL (1.6-8.9); Platelet Count 278 K/mcL (140-400); Red Blood Count 2.81 M/mcL (4.19-5.50); Red Cell Distribution Width 13.3 % (11.5-14.5); Segmented Neutrophils % 85.5 %; White Blood Count 15.9 K/mcL (4.3-11.1)
[2022-02-23 05:27] LABS: Calcium 7.9 mg/dL (8.6-10.3); Magnesium 2.1 mg/dL (1.6-2.6); Phosphorous 4.7 mg/dL (2.7-4.5); Potassium 3.9 mEq/L (3.5-5.1)
[2022-02-23] MEDS: Pantoprazole 40 MG VIAL IVP SCH ×2 (07:28→17:06)
[2022-02-23] MEDS: Insulin LISPRO 300 UNITS/3 ML VIAL SUBQ SCH ×4 (08:28→21:59)
[2022-02-23] MEDS: NIFEdipine XL (24 HR) 60 MG TAB.ER.24 PO SCH (08:29)
[2022-02-23] MEDS: Calcium Acetate 667 MG CAPSULE PO SCH ×3 (08:29→17:06)
[2022-02-23] MEDS: carvediloL 25 MG TABLET PO SCH ×2 (08:29→17:06)
[2022-02-23] MEDS: Insulin DETEMIR 100 UNIT/ML X5UNITS SUBQ SCH (08:32)
[2022-02-23] MEDS: Ondansetron 4 MG/2 ML VIAL IVP PRN (11:41)
[2022-02-23] MEDS: Fluconazole 200 MG/100 ML IVPB SCH (14:13)
[2022-02-23] MEDS: cefTRIAXone 1,000 MG in 0.9 % Sodium Chloride Mini Bag 100 ML IVPB SCH (15:22)
[2022-02-23 17:28] LABS: Bilirubin,Urine Negative (Negative); Blood,Urine Large (Negative); Clarity,Urine Turbid (Clear); Color,Urine Yellow (Yellow); Glucose,Urine (UA) 300 mg/dL (Normal); Ketones,Urine Negative (Negative); Leukocyte Esterase,Urine Large (Negative); Nitrite,Urine Negative (Negative); PH,Urine 6.5 pH Units (5.0-8.0); Protein,Urine >=600 mg/dL (Neg-Trace); Specific Gravity,Urine 1.022 (1.010-1.025); Urobilinogen,Urine Normal (Normal)
[2022-02-23 17:38] LABS: Amorphous Sediment,Urine Few per hpf (None-Few); Squamous Epithelial Cell,Urine Few per hpf (None-Few); WBC,Urine 15-30 per hpf (0-3)
[2022-02-23 17:39] LABS: Bacteria,Urine Few per hpf (None-Few)
[2022-02-24 01:05] LABS: Basophils % 0.2 %; Eosinophils # 0.2 K/mcL (0.0-0.6); Eosinophils % 0.9 %; Hematocrit 21.7 % (37.5-50.1); Hemoglobin 7.1 g/dL (12.9-16.9); Immature Granulocytes % 1.4 % (0-4); Lymphocytes # 0.8 K/mcL (0.6-4.6); Lymphocytes % 5.1 %; Mean Corpuscular HGB Conc 32.7 g/dL (31.6-35.5); Mean Corpuscular Hemoglobin 27.8 pg (28.0-33.3); Mean Corpuscular Volume 85.1 fL (83.0-100.0); Mean Platelet Volume 9.9 fL (9.4-12.4); Monocytes # 0.9 K/mcL (0.0-1.3); Monocytes % 5.8 %; Neutrophils # 13.8 K/mcL (1.6-8.9); Platelet Count 266 K/mcL (140-400); Red Blood Count 2.55 M/mcL (4.19-5.50); Red Cell Distribution Width 13.3 % (11.5-14.5); Segmented Neutrophils % 86.6 %
[2022-02-24 01:26] LABS: Calcium 7.9 mg/dL (8.6-10.3); Potassium 3.8 mEq/L (3.5-5.1)
[2022-02-24] MEDS: Pantoprazole 40 MG VIAL IVP SCH ×2 (05:30→17:19)
[2022-02-24] MEDS: Calcium Acetate 667 MG CAPSULE PO SCH ×3 (07:36→14:56)
[2022-02-24] MEDS: Acetaminophen 325 MG TABLET PO PRN ×3 (07:40→22:00)
[2022-02-24] MEDS ORDERED: 0.9 % Sodium Chloride 250 ML IVC PRN (08:27)
[2022-02-24] MEDS ORDERED: *HR* Heparin 10,000 UNIT/10 ML VIAL IV PRN ×2 (08:27)
[2022-02-24] MEDS: Ondansetron 4 MG/2 ML VIAL IVP PRN (08:32)
[2022-02-24] MEDS: carvediloL 25 MG TABLET PO SCH ×2 (08:34→16:57)
[2022-02-24] MEDS: NIFEdipine XL (24 HR) 60 MG TAB.ER.24 PO SCH (08:34)
[2022-02-24] MEDS: Insulin LISPRO 300 UNITS/3 ML VIAL SUBQ SCH ×4 (08:38→21:31)
[2022-02-24] MEDS: Insulin DETEMIR 100 UNIT/ML X5UNITS SUBQ SCH (09:51)
[2022-02-24] MEDS: cefTRIAXone 1,000 MG in 0.9 % Sodium Chloride Mini Bag 100 ML IVPB SCH (14:53)
[2022-02-24] MEDS: Fluconazole 200 MG/100 ML IVPB SCH (16:00)
[2022-02-25 04:48] LABS: Basophils % 0.2 %; Eosinophils # 0.2 K/mcL (0.0-0.6); Eosinophils % 1.1 %; Hematocrit 21.8 % (37.5-50.1); Hemoglobin 6.9 g/dL (12.9-16.9); Immature Granulocytes % 1.3 % (0-4); Lymphocytes # 0.7 K/mcL (0.6-4.6); Lymphocytes % 4.5 %; Mean Corpuscular HGB Conc 31.7 g/dL (31.6-35.5); Mean Corpuscular Hemoglobin 27.1 pg (28.0-33.3); Mean Corpuscular Volume 85.5 fL (83.0-100.0); Mean Platelet Volume 10.3 fL (9.4-12.4); Monocytes % 6.6 %; Platelet Count 286 K/mcL (140-400); Red Blood Count 2.55 M/mcL (4.19-5.50); Red Cell Distribution Width 13.2 % (11.5-14.5); Segmented Neutrophils % 86.3 %
[2022-02-25 05:04] LABS: Calcium 7.7 mg/dL (8.6-10.3); Magnesium 2.1 mg/dL (1.6-2.6); Phosphorous 3.1 mg/dL (2.7-4.5); Potassium 3.7 mEq/L (3.5-5.1)
[2022-02-25] MEDS: Pantoprazole 40 MG VIAL IVP SCH (05:50)
[2022-02-25] MEDS ORDERED: *HR* Heparin 10,000 UNIT/10 ML VIAL IV PRN (07:34)
[2022-02-25] MEDS ORDERED: 0.9 % Sodium Chloride 250 ML IVC PRN (07:34)
[2022-02-25] MEDS: Acetaminophen 325 MG TABLET PO PRN (08:38)
[2022-02-25] MEDS: Calcium Acetate 667 MG CAPSULE PO SCH ×3 (08:38→16:12)
[2022-02-25] MEDS: Ondansetron 4 MG/2 ML VIAL IVP PRN (08:39)
[2022-02-25] MEDS: Insulin LISPRO 300 UNITS/3 ML VIAL SUBQ SCH ×4 (08:40→17:52)
[2022-02-25] MEDS: Insulin DETEMIR 100 UNIT/ML X5UNITS SUBQ SCH (08:40)
[2022-02-25] MEDS: NIFEdipine XL (24 HR) 60 MG TAB.ER.24 PO SCH (13:09)
[2022-02-25] MEDS: carvediloL 25 MG TABLET PO SCH ×2 (13:09→17:56)
[2022-02-25] MEDS: cefTRIAXone 1,000 MG in 0.9 % Sodium Chloride Mini Bag 100 ML IVPB SCH (16:13)
[2022-02-25] MEDS: Fluconazole 100 MG TABLET PO SCH (16:13)
[2022-02-26] MEDS: Ondansetron 4 MG/2 ML VIAL IVP PRN ×2 (03:27→16:40)
[2022-02-26 03:48] LABS: Basophils % 0.2 %; Eosinophils # 0.1 K/mcL (0.0-0.6); Eosinophils % 1.1 %; Hemoglobin 7.7 g/dL (12.9-16.9); Immature Granulocytes % 1.2 % (0-4); Lymphocytes # 0.7 K/mcL (0.6-4.6); Lymphocytes % 5.5 %; Mean Corpuscular HGB Conc 32.1 g/dL (31.6-35.5); Mean Corpuscular Hemoglobin 27.4 pg (28.0-33.3); Mean Corpuscular Volume 85.4 fL (83.0-100.0); Mean Platelet Volume 9.5 fL (9.4-12.4); Monocytes # 1.1 K/mcL (0.0-1.3); Monocytes % 8.5 %; Neutrophils # 10.4 K/mcL (1.6-8.9); Platelet Count 302 K/mcL (140-400); Red Blood Count 2.81 M/mcL (4.19-5.50); Red Cell Distribution Width 13.4 % (11.5-14.5); Segmented Neutrophils % 83.5 %; White Blood Count 12.4 K/mcL (4.3-11.1)
[2022-02-26 04:07] LABS: Calcium 7.8 mg/dL (8.6-10.3); Potassium 3.8 mEq/L (3.5-5.1)
[2022-02-26] MEDS: Acetaminophen 325 MG TABLET PO PRN (05:59)
[2022-02-26] MEDS: NIFEdipine XL (24 HR) 60 MG TAB.ER.24 PO SCH (09:01)
[2022-02-26] MEDS: Insulin LISPRO 300 UNITS/3 ML VIAL SUBQ SCH ×4 (09:01→21:26)
[2022-02-26] MEDS: carvediloL 25 MG TABLET PO SCH ×2 (09:01→15:09)
[2022-02-26] MEDS: Calcium Acetate 667 MG CAPSULE PO SCH ×3 (09:01→15:09)
[2022-02-26] MEDS: Insulin DETEMIR 100 UNIT/ML X5UNITS SUBQ SCH (09:01)
[2022-02-26] MEDS: cefTRIAXone 1,000 MG in 0.9 % Sodium Chloride Mini Bag 100 ML IVPB SCH (15:09)
[2022-02-26] MEDS: Fluconazole 100 MG TABLET PO SCH (15:09)
[2022-02-27 04:22] LABS: Basophils % 0.3 %; Eosinophils # 0.2 K/mcL (0.0-0.6); Eosinophils % 1.9 %; Hematocrit 22.9 % (37.5-50.1); Hemoglobin 7.4 g/dL (12.9-16.9); Immature Granulocytes % 1.4 % (0-4); Lymphocytes # 0.9 K/mcL (0.6-4.6); Lymphocytes % 10.2 %; Mean Corpuscular HGB Conc 32.3 g/dL (31.6-35.5); Mean Corpuscular Volume 86.7 fL (83.0-100.0); Mean Platelet Volume 9.2 fL (9.4-12.4); Monocytes # 0.9 K/mcL (0.0-1.3); Monocytes % 10.2 %; Platelet Count 260 K/mcL (140-400); Red Blood Count 2.64 M/mcL (4.19-5.50); Red Cell Distribution Width 13.3 % (11.5-14.5); White Blood Count 9.3 K/mcL (4.3-11.1)
[2022-02-27 04:36] LABS: Calcium 7.8 mg/dL (8.6-10.3); Potassium 3.7 mEq/L (3.5-5.1)
[2022-02-27] MEDS: Ondansetron 4 MG/2 ML VIAL IVP PRN (07:41)
[2022-02-27] MEDS: Insulin LISPRO 300 UNITS/3 ML VIAL SUBQ SCH ×4 (08:12→21:52)
[2022-02-27] MEDS: Insulin DETEMIR 100 UNIT/ML X5UNITS SUBQ SCH (08:12)
[2022-02-27] MEDS: Acetaminophen 325 MG TABLET PO PRN (08:26)
[2022-02-27] MEDS: carvediloL 25 MG TABLET PO SCH ×3 (08:27→18:01)
[2022-02-27] MEDS: NIFEdipine XL (24 HR) 60 MG TAB.ER.24 PO SCH (08:27)
[2022-02-27] MEDS: Calcium Acetate 667 MG CAPSULE PO SCH ×4 (08:35→18:01)
[2022-02-27] MEDS ORDERED: 0.9 % Sodium Chloride 250 ML IVC PRN ×2 (08:49→16:54)
[2022-02-27] MEDS ORDERED: *HR* Heparin 10,000 UNIT/10 ML VIAL IV PRN (08:49)
[2022-02-27] MEDS ORDERED: *HR* OxyCODONE Immed Rel 5 MG TABLET PO ONE (14:12)
[2022-02-27] MEDS ORDERED: Lidocaine/EPI 1:200k 1% PF 10 ML VIAL ONE (15:00)
[2022-02-27] MEDS ORDERED: *HR* Propofol 200 MG/20 ML VIAL IVP ONE (15:25)
[2022-02-27] MEDS ORDERED: Lidocaine -MPF 2% 5 ML VIAL ONE (15:55)
[2022-02-27] MEDS: cefTRIAXone 1,000 MG in 0.9 % Sodium Chloride Mini Bag 100 ML IVPB SCH (16:36)
[2022-02-27] MEDS: Fluconazole 100 MG TABLET PO SCH (16:38)
[2022-02-27] MEDS ORDERED: *HR* Dextrose 50 % in Water (Syg) 50 ML SYRINGE IVP PRN (16:54)
[2022-02-27] MEDS ORDERED: Darbepoetin 100 MCG/0.5 ML SYRINGE SQ SCH (16:54)
[2022-02-27] MEDS ORDERED: D5% in Water 1,000 ML IVC PRN (16:54)
[2022-02-27] MEDS ORDERED: Dextrose Gel 15 GM/37.5 ML TUBE PO PRN (16:54)
[2022-02-27] MEDS ORDERED: Naloxone 0.4 MG/ML INJ IVP PRN (16:54)
[2022-02-27] MEDS ORDERED: polyethylene glycoL 3350 17 GM POWD.PACK PO PRN (16:54)
[2022-02-27] MEDS ORDERED: 0.9 % Sodium Chloride 2,000 ML PRIME SCH (16:54)
[2022-02-28 06:20] LABS: Basophils % 0.4 %; Eosinophils # 0.1 K/mcL (0.0-0.6); Eosinophils % 1.4 %; Hematocrit 24.4 % (37.5-50.1); Hemoglobin 7.6 g/dL (12.9-16.9); Lymphocytes # 0.8 K/mcL (0.6-4.6); Lymphocytes % 8.9 %; Mean Corpuscular HGB Conc 31.1 g/dL (31.6-35.5); Mean Corpuscular Hemoglobin 27.2 pg (28.0-33.3); Mean Corpuscular Volume 87.5 fL (83.0-100.0); Mean Platelet Volume 9.2 fL (9.4-12.4); Monocytes # 0.9 K/mcL (0.0-1.3); Neutrophils # 7.2 K/mcL (1.6-8.9); Platelet Count 262 K/mcL (140-400); Red Blood Count 2.79 M/mcL (4.19-5.50); Red Cell Distribution Width 13.2 % (11.5-14.5); Segmented Neutrophils % 78.3 %; White Blood Count 9.2 K/mcL (4.3-11.1)
[2022-02-28 07:18] LABS: Calcium 7.7 mg/dL (8.6-10.3); Phosphorous 3.4 mg/dL (2.7-4.5); Potassium 3.9 mEq/L (3.5-5.1)
[2022-02-28] MEDS ORDERED: *HR* OxyCODONE Immed Rel 5 MG TABLET PO ONE (10:46)
[2022-02-28] MEDS: Insulin LISPRO 300 UNITS/3 ML VIAL SUBQ SCH ×4 (11:43→21:55)
[2022-02-28] MEDS: NIFEdipine XL (24 HR) 60 MG TAB.ER.24 PO SCH (11:48)
[2022-02-28] MEDS: hydrOXYzine pamoate 25 MG CAPSULE PO PRN (11:48)
[2022-02-28] MEDS: carvediloL 25 MG TABLET PO SCH ×2 (11:48→19:10)
[2022-02-28] MEDS: Insulin DETEMIR 100 UNIT/ML X5UNITS SUBQ SCH (11:49)
[2022-02-28] MEDS: Calcium Acetate 667 MG CAPSULE PO SCH ×3 (11:49→19:10)
[2022-02-28] MEDS ORDERED: Vancomycin 2,000 MG/520 ML IV.SOLN IVPB ONE (14:00)
[2022-02-28] MEDS ORDERED: Cefepime HCl 1,000 MG in 0.9 % Sodium Chloride 10 ML IVPB SCH ×2 (14:00→20:00)
[2022-02-28] MEDS ORDERED: cefTRIAXone 1,000 MG in 0.9 % Sodium Chloride Mini Bag 100 ML IVPB SCH (15:00)
[2022-02-28] MEDS: Fluconazole 100 MG TABLET PO SCH (19:08)
[2022-03-01 03:05] LABS: Basophils % 0.4 %; Eosinophils # 0.2 K/mcL (0.0-0.6); Eosinophils % 2.5 %; Hematocrit 23.4 % (37.5-50.1); Hemoglobin 7.4 g/dL (12.9-16.9); Immature Granulocytes % 0.7 % (0-4); Lymphocytes # 0.9 K/mcL (0.6-4.6); Lymphocytes % 10.7 %; Mean Corpuscular HGB Conc 31.6 g/dL (31.6-35.5); Mean Corpuscular Hemoglobin 27.5 pg (28.0-33.3); Mean Platelet Volume 9.4 fL (9.4-12.4); Monocytes # 0.9 K/mcL (0.0-1.3); Monocytes % 11.3 %; Platelet Count 271 K/mcL (140-400); Red Blood Count 2.69 M/mcL (4.19-5.50); Red Cell Distribution Width 13.2 % (11.5-14.5); Segmented Neutrophils % 74.4 %; White Blood Count 8.1 K/mcL (4.3-11.1)
[2022-03-01 03:22] LABS: Calcium 7.6 mg/dL (8.6-10.3); Phosphorous 2.9 mg/dL (2.7-4.5); Potassium 3.7 mEq/L (3.5-5.1)
[2022-03-01] MEDS: carvediloL 25 MG TABLET PO SCH ×2 (09:51→18:27)
[2022-03-01] MEDS: NIFEdipine XL (24 HR) 60 MG TAB.ER.24 PO SCH (09:51)
[2022-03-01] MEDS: Calcium Acetate 667 MG CAPSULE PO SCH ×3 (09:51→18:27)
[2022-03-01] MEDS: Darbepoetin 100 MCG/0.5 ML SYRINGE SQ SCH (09:52)
[2022-03-01] MEDS: Insulin DETEMIR 100 UNIT/ML X5UNITS SUBQ SCH (09:53)
[2022-03-01] MEDS: Insulin LISPRO 300 UNITS/3 ML VIAL SUBQ SCH ×4 (09:53→21:01)
[2022-03-01] MEDS ORDERED: Insulin DETEMIR 100 UNIT/ML X5UNITS SUBQ ONE (11:47)
[2022-03-01] MEDS: Fluconazole 100 MG TABLET PO SCH (18:27)
[2022-03-01] MEDS: Ondansetron 4 MG/2 ML VIAL IVP PRN (18:27)
[2022-03-01] MEDS: Doxycycline 100 MG in 0.9 % Sodium Chloride Mini Bag 100 ML IVPB SCH (21:01)
[2022-03-01] MEDS: Acetaminophen 325 MG TABLET PO PRN (21:20)
[2022-03-02 03:53] LABS: Calcium 7.8 mg/dL (8.6-10.3); Phosphorous 3.1 mg/dL (2.7-4.5); Potassium 3.7 mEq/L (3.5-5.1)
[2022-03-02] MEDS: Doxycycline 100 MG in 0.9 % Sodium Chloride Mini Bag 100 ML IVPB SCH ×2 (05:27→17:36)
[2022-03-02] MEDS: Acetaminophen 325 MG TABLET PO PRN ×3 (05:31→19:41)
[2022-03-02] MEDS: Calcium Acetate 667 MG CAPSULE PO SCH ×3 (08:43→17:37)
[2022-03-02] MEDS: NIFEdipine XL (24 HR) 60 MG TAB.ER.24 PO SCH (08:43)
[2022-03-02] MEDS: carvediloL 25 MG TABLET PO SCH ×2 (08:43→17:37)
[2022-03-02] MEDS: Insulin LISPRO 300 UNITS/3 ML VIAL SUBQ SCH ×4 (08:44→19:45)
[2022-03-02] MEDS ORDERED: Insulin DETEMIR 100 UNIT/ML X5UNITS SUBQ SCH (09:00)
[2022-03-02] MEDS: Ondansetron 4 MG/2 ML VIAL IVP PRN ×2 (09:47→21:29)
[2022-03-02] MEDS: Fluconazole 100 MG TABLET PO SCH (17:37)
[2022-03-02] MEDS ORDERED: 0.9 % Sodium Chloride 250 ML IVC ONE (21:50)
[2022-03-03] MEDS: Doxycycline 100 MG in 0.9 % Sodium Chloride Mini Bag 100 ML IVPB SCH ×2 (05:12→17:27)
[2022-03-03 05:49] LABS: Basophils # 0.1 K/mcL (0.0-0.2); Basophils % 0.7 %; Eosinophils # 0.2 K/mcL (0.0-0.6); Eosinophils % 2.4 %; Hematocrit 22.5 % (37.5-50.1); Hemoglobin 7.3 g/dL (12.9-16.9); Immature Granulocytes % 0.8 % (0-4); Lymphocytes % 13.1 %; Mean Corpuscular HGB Conc 32.4 g/dL (31.6-35.5); Mean Corpuscular Hemoglobin 28.1 pg (28.0-33.3); Mean Corpuscular Volume 86.5 fL (83.0-100.0); Mean Platelet Volume 9.3 fL (9.4-12.4); Monocytes # 0.8 K/mcL (0.0-1.3); Neutrophils # 5.5 K/mcL (1.6-8.9); Platelet Count 219 K/mcL (140-400); Red Cell Distribution Width 12.7 % (11.5-14.5); White Blood Count 7.5 K/mcL (4.3-11.1)
[2022-03-03 05:54] LABS: INR 1.2; Prothrombin Time 13.4 Seconds (9.4-12.1)
[2022-03-03 06:06] LABS: Calcium 8.1 mg/dL (8.6-10.3); Phosphorous 3.7 mg/dL (2.7-4.5); Potassium 3.9 mEq/L (3.5-5.1)
[2022-03-03] MEDS: Insulin LISPRO 300 UNITS/3 ML VIAL SUBQ SCH ×4 (07:51→22:03)
[2022-03-03] MEDS: Calcium Acetate 667 MG CAPSULE PO SCH ×3 (07:51→17:27)
[2022-03-03] MEDS: NIFEdipine XL (24 HR) 60 MG TAB.ER.24 PO SCH (08:25)
[2022-03-03] MEDS: carvediloL 25 MG TABLET PO SCH ×2 (08:25→17:27)
[2022-03-03] MEDS: Ondansetron 4 MG/2 ML VIAL IVP PRN (08:26)
[2022-03-03] MEDS: Insulin DETEMIR 100 UNIT/ML X5UNITS SUBQ SCH (15:00)
[2022-03-03] MEDS: Fluconazole 100 MG TABLET PO SCH (16:30)
[2022-03-03] MEDS: Acetaminophen 325 MG TABLET PO PRN (16:30)
[2022-03-03] MEDS: Furosemide 40 MG TABLET PO SCH (17:27)
[2022-03-04] MEDS: Ondansetron 4 MG/2 ML VIAL IVP PRN ×2 (00:05→10:24)
[2022-03-04] MEDS: Acetaminophen 325 MG TABLET PO PRN ×3 (00:06→20:51)
[2022-03-04] MEDS: Doxycycline 100 MG in 0.9 % Sodium Chloride Mini Bag 100 ML IVPB SCH (05:26)
[2022-03-04 05:58] LABS: Basophils % 0.7 %; Eosinophils # 0.2 K/mcL (0.0-0.6); Hematocrit 22.3 % (37.5-50.1); Hemoglobin 7.2 g/dL (12.9-16.9); Immature Granulocytes % 0.5 % (0-4); Lymphocytes # 0.8 K/mcL (0.6-4.6); Lymphocytes % 14.1 %; Mean Corpuscular HGB Conc 32.3 g/dL (31.6-35.5); Mean Corpuscular Hemoglobin 27.6 pg (28.0-33.3); Mean Corpuscular Volume 85.4 fL (83.0-100.0); Mean Platelet Volume 9.5 fL (9.4-12.4); Monocytes # 0.6 K/mcL (0.0-1.3); Monocytes % 10.1 %; Neutrophils # 4.3 K/mcL (1.6-8.9); Platelet Count 228 K/mcL (140-400); Red Blood Count 2.61 M/mcL (4.19-5.50); Red Cell Distribution Width 12.8 % (11.5-14.5); Segmented Neutrophils % 71.6 %; White Blood Count 5.9 K/mcL (4.3-11.1)
[2022-03-04 06:19] LABS: Calcium 8.1 mg/dL (8.6-10.3); Phosphorous 4.2 mg/dL (2.7-4.5); Potassium 3.9 mEq/L (3.5-5.1)
[2022-03-04] MEDS: Furosemide 40 MG TABLET PO SCH ×2 (08:43→20:51)
[2022-03-04] MEDS: carvediloL 25 MG TABLET PO SCH ×2 (08:43→20:50)
[2022-03-04] MEDS: NIFEdipine XL (24 HR) 60 MG TAB.ER.24 PO SCH (08:44)
[2022-03-04] MEDS: Insulin LISPRO 300 UNITS/3 ML VIAL SUBQ SCH ×4 (08:49→20:52)
[2022-03-04] MEDS: Calcium Acetate 667 MG CAPSULE PO SCH ×3 (08:50→20:51)
[2022-03-04] MEDS: Insulin DETEMIR 100 UNIT/ML X5UNITS SUBQ SCH (08:50)
[2022-03-04] MEDS ORDERED: Heparin 1,000 UNITS/500 mL 500 ML ONE (11:16)
[2022-03-04] MEDS ORDERED: *HR* FentaNYL (PF) 100 MCG/2 ML VIAL ONE (11:49)
[2022-03-04] MEDS ORDERED: 0.9 % Sodium Chloride 500 ML ONE (11:50)
[2022-03-04] MEDS ORDERED: *HR* Midazolam HCl 2 MG/2 ML VIAL ONE (11:50)
[2022-03-04] MEDS ORDERED: *HR* Midazolam HCl 2 MG/2 ML VIAL IVP ONE (12:02)
[2022-03-04] MEDS ORDERED: *HR* FentaNYL (PF) 100 MCG/2 ML VIAL IVP ONE (12:02)
[2022-03-04] MEDS ORDERED: *HR* Heparin 5,000 UNIT/ML VIAL ONE (12:05)
[2022-03-04] MEDS ORDERED: Clindamycin 600 MG/50 ML 600 MG/50 ML IV.SOLN IVPB STA (12:06)
[2022-03-04] MEDS ORDERED: 0.9 % Sodium Chloride 250 ML IVC PRN (12:28)
[2022-03-04] MEDS ORDERED: *HR* Heparin 10,000 UNIT/10 ML VIAL IV PRN (12:28)
[2022-03-04] MEDS ORDERED: 0.9 % Sodium Chloride 2,000 ML PRIME SCH (12:30)
[2022-03-04] MEDS ORDERED: Insulin DETEMIR 100 UNIT/ML X5UNITS SUBQ ONE (14:02)
[2022-03-04] MEDS: Fluconazole 100 MG TABLET PO SCH (15:29)
[2022-03-04] MEDS: *HR* OxyCODONE/APAP 7.5/325 TABLET PO PRN (16:40)
[2022-03-04] MEDS: Doxycycline 100 MG CAPSULE PO SCH (20:51)
[2022-03-05] MEDS: Melatonin 3 MG TABLET PO PRN ×2 (01:48→20:45)
[2022-03-05 05:25] LABS: Basophils # 0.1 K/mcL (0.0-0.2); Basophils % 0.9 %; Eosinophils # 0.2 K/mcL (0.0-0.6); Eosinophils % 2.7 %; Hematocrit 21.8 % (37.5-50.1); Hemoglobin 7.2 g/dL (12.9-16.9); Immature Granulocytes % 0.5 % (0-4); Lymphocytes # 0.9 K/mcL (0.6-4.6); Lymphocytes % 15.9 %; Mean Corpuscular Hemoglobin 27.8 pg (28.0-33.3); Mean Corpuscular Volume 84.2 fL (83.0-100.0); Mean Platelet Volume 8.8 fL (9.4-12.4); Monocytes # 0.7 K/mcL (0.0-1.3); Monocytes % 12.1 %; Neutrophils # 3.7 K/mcL (1.6-8.9); Platelet Count 219 K/mcL (140-400); Red Blood Count 2.59 M/mcL (4.19-5.50); Red Cell Distribution Width 12.9 % (11.5-14.5); Segmented Neutrophils % 67.9 %; White Blood Count 5.5 K/mcL (4.3-11.1)
[2022-03-05 05:44] LABS: Calcium 7.8 mg/dL (8.6-10.3); Phosphorous 3.3 mg/dL (2.7-4.5); Potassium 3.7 mEq/L (3.5-5.1)
[2022-03-05] MEDS: NIFEdipine XL (24 HR) 60 MG TAB.ER.24 PO SCH (09:04)
[2022-03-05] MEDS: Doxycycline 100 MG CAPSULE PO SCH ×2 (09:05→20:45)
[2022-03-05] MEDS: carvediloL 25 MG TABLET PO SCH ×2 (09:05→17:49)
[2022-03-05] MEDS: Calcium Acetate 667 MG CAPSULE PO SCH ×3 (09:05→17:49)
[2022-03-05] MEDS: Furosemide 40 MG TABLET PO SCH ×2 (09:05→17:49)
[2022-03-05] MEDS: Insulin DETEMIR 100 UNIT/ML X5UNITS SUBQ SCH (09:05)
[2022-03-05] MEDS: Insulin LISPRO 300 UNITS/3 ML VIAL SUBQ SCH ×4 (09:06→20:52)
[2022-03-05] MEDS: Ondansetron 4 MG/2 ML VIAL IVP PRN ×2 (09:10→17:50)
[2022-03-05] MEDS: *HR* OxyCODONE/APAP 7.5/325 TABLET PO PRN (11:26)
[2022-03-05] MEDS ORDERED: 0.9 % Sodium Chloride 250 ML IVC PRN (14:40)
[2022-03-05] MEDS ORDERED: *HR* Heparin 10,000 UNIT/10 ML VIAL IV PRN (14:40)
[2022-03-05] MEDS: Fluconazole 100 MG TABLET PO SCH (17:49)
[2022-03-05] MEDS: Acetaminophen 325 MG TABLET PO PRN (20:45)
[2022-03-06 05:58] LABS: Basophils # 0.1 K/mcL (0.0-0.2); Basophils % 1.3 %; Eosinophils # 0.2 K/mcL (0.0-0.6); Eosinophils % 3.4 %; Hematocrit 22.9 % (37.5-50.1); Hemoglobin 7.2 g/dL (12.9-16.9); Immature Granulocytes % 0.4 % (0-4); Lymphocytes # 1.1 K/mcL (0.6-4.6); Lymphocytes % 20.7 %; Mean Corpuscular HGB Conc 31.4 g/dL (31.6-35.5); Mean Corpuscular Hemoglobin 26.9 pg (28.0-33.3); Mean Corpuscular Volume 85.4 fL (83.0-100.0); Mean Platelet Volume 9.1 fL (9.4-12.4); Monocytes # 0.7 K/mcL (0.0-1.3); Monocytes % 12.3 %; Neutrophils # 3.3 K/mcL (1.6-8.9); Platelet Count 227 K/mcL (140-400); Red Blood Count 2.68 M/mcL (4.19-5.50); Red Cell Distribution Width 13.2 % (11.5-14.5); Segmented Neutrophils % 61.9 %; White Blood Count 5.4 K/mcL (4.3-11.1)
[2022-03-06] MEDS ORDERED: 0.9 % Sodium Chloride 250 ML IVC PRN (09:00)
[2022-03-06] MEDS ORDERED: *HR* Heparin 10,000 UNIT/10 ML VIAL IV PRN (09:00)
[2022-03-06] MEDS: Insulin LISPRO 300 UNITS/3 ML VIAL SUBQ SCH ×4 (09:34→21:14)
[2022-03-06] MEDS: carvediloL 25 MG TABLET PO SCH ×2 (09:35→17:07)
[2022-03-06] MEDS: NIFEdipine XL (24 HR) 60 MG TAB.ER.24 PO SCH (09:35)
[2022-03-06] MEDS: Ondansetron 4 MG/2 ML VIAL IVP PRN (09:48)
[2022-03-06] MEDS: Furosemide 40 MG TABLET PO SCH ×2 (10:03→17:07)
[2022-03-06] MEDS: Doxycycline 100 MG CAPSULE PO SCH ×2 (10:03→21:15)
[2022-03-06] MEDS: Calcium Acetate 667 MG CAPSULE PO SCH ×3 (10:03→17:07)
[2022-03-06] MEDS: *HR* OxyCODONE/APAP 7.5/325 TABLET PO PRN (10:20)
[2022-03-06] MEDS: polyethylene glycoL 3350 17 GM POWD.PACK PO SCH (10:20)
[2022-03-06] MEDS: Acetaminophen 325 MG TABLET PO PRN (11:34)
[2022-03-06] MEDS: Insulin DETEMIR 100 UNIT/ML X5UNITS SUBQ SCH (11:53)
[2022-03-06] MEDS: Sennosides/Docusate Sodium TABLET PO SCH ×2 (13:10→21:15)
[2022-03-06] MEDS: Bisacodyl 10 MG RECTAL SUPPOSITORY RC SCH (13:35)
[2022-03-06] MEDS: Fluconazole 100 MG TABLET PO SCH (17:06)
[2022-03-06] MEDS: Melatonin 3 MG TABLET PO PRN (21:48)
[2022-03-07] MEDS: Sennosides/Docusate Sodium TABLET PO SCH ×3 (00:48→20:04)
[2022-03-07 05:10] LABS: Basophils # 0.1 K/mcL (0.0-0.2); Basophils % 1.4 %; Eosinophils # 0.2 K/mcL (0.0-0.6); Eosinophils % 4.1 %; Hematocrit 21.5 % (37.5-50.1); Hemoglobin 6.8 g/dL (12.9-16.9); Immature Granulocytes % 0.4 % (0-4); Lymphocytes # 1.3 K/mcL (0.6-4.6); Lymphocytes % 24.7 %; Mean Corpuscular HGB Conc 31.6 g/dL (31.6-35.5); Mean Corpuscular Hemoglobin 26.8 pg (28.0-33.3); Mean Corpuscular Volume 84.6 fL (83.0-100.0); Monocytes # 0.6 K/mcL (0.0-1.3); Monocytes % 11.6 %; Platelet Count 180 K/mcL (140-400); Red Blood Count 2.54 M/mcL (4.19-5.50); Red Cell Distribution Width 13.1 % (11.5-14.5); Segmented Neutrophils % 57.8 %; White Blood Count 5.1 K/mcL (4.3-11.1)
[2022-03-07 05:17] LABS: Calcium 7.8 mg/dL (8.6-10.3); Potassium 3.8 mEq/L (3.5-5.1)
[2022-03-07] MEDS: Insulin LISPRO 300 UNITS/3 ML VIAL SUBQ SCH ×4 (08:23→20:05)
[2022-03-07] MEDS: polyethylene glycoL 3350 17 GM POWD.PACK PO SCH (09:19)
[2022-03-07] MEDS: Calcium Acetate 667 MG CAPSULE PO SCH ×3 (09:19→17:36)
[2022-03-07] MEDS: NIFEdipine XL (24 HR) 60 MG TAB.ER.24 PO SCH (09:19)
[2022-03-07] MEDS: Furosemide 40 MG TABLET PO SCH ×2 (09:19→17:36)
[2022-03-07] MEDS: carvediloL 25 MG TABLET PO SCH ×2 (09:19→17:36)
[2022-03-07] MEDS: Doxycycline 100 MG CAPSULE PO SCH ×2 (09:19→20:05)
[2022-03-07] MEDS: Bisacodyl 10 MG RECTAL SUPPOSITORY RC SCH (09:19)
[2022-03-07] MEDS: Insulin DETEMIR 100 UNIT/ML X5UNITS SUBQ SCH (09:25)
[2022-03-07] MEDS: Ondansetron 4 MG/2 ML VIAL IVP PRN ×2 (09:26→20:04)
[2022-03-07] MEDS: Acetaminophen 325 MG TABLET PO PRN (12:27)
[2022-03-07] MEDS ORDERED: 0.9 % Sodium Chloride 250 ML ONE (15:21)
[2022-03-07] MEDS: Fluconazole 100 MG TABLET PO SCH (18:19)
[2022-03-07] MEDS: hydrOXYzine pamoate 25 MG CAPSULE PO PRN (20:05)
[2022-03-08] MEDS: Melatonin 3 MG TABLET PO PRN ×2 (01:00→20:08)
[2022-03-08 04:21] LABS: Basophils # 0.1 K/mcL (0.0-0.2); Basophils % 0.7 %; Eosinophils # 0.3 K/mcL (0.0-0.6); Eosinophils % 3.3 %; Hematocrit 24.5 % (37.5-50.1); Hemoglobin 7.9 g/dL (12.9-16.9); Immature Granulocytes % 0.4 % (0-4); Lymphocytes # 1.2 K/mcL (0.6-4.6); Lymphocytes % 15.1 %; Mean Corpuscular HGB Conc 32.2 g/dL (31.6-35.5); Mean Corpuscular Hemoglobin 27.9 pg (28.0-33.3); Mean Corpuscular Volume 86.6 fL (83.0-100.0); Mean Platelet Volume 9.1 fL (9.4-12.4); Monocytes # 0.8 K/mcL (0.0-1.3); Monocytes % 9.4 %; Neutrophils # 5.8 K/mcL (1.6-8.9); Platelet Count 194 K/mcL (140-400); Red Blood Count 2.83 M/mcL (4.19-5.50); Red Cell Distribution Width 13.2 % (11.5-14.5); Segmented Neutrophils % 71.1 %
[2022-03-08 04:23] LABS: White Blood Count 8.2 K/mcL (4.3-11.1)
[2022-03-08] MEDS ORDERED: 0.9 % Sodium Chloride 250 ML IVC PRN (07:32)
[2022-03-08] MEDS: Insulin LISPRO 300 UNITS/3 ML VIAL SUBQ SCH ×4 (09:08→19:59)
[2022-03-08] MEDS: Calcium Acetate 667 MG CAPSULE PO SCH ×3 (09:09→16:42)
[2022-03-08] MEDS: Insulin DETEMIR 100 UNIT/ML X5UNITS SUBQ SCH (09:21)
[2022-03-08] MEDS: Ondansetron 4 MG/2 ML VIAL IVP PRN (09:21)
[2022-03-08] MEDS: Furosemide 40 MG TABLET PO SCH ×2 (09:22→16:42)
[2022-03-08] MEDS: Sennosides/Docusate Sodium TABLET PO SCH ×2 (09:22→20:03)
[2022-03-08] MEDS: Bisacodyl 10 MG RECTAL SUPPOSITORY RC SCH (09:22)
[2022-03-08] MEDS: Doxycycline 100 MG CAPSULE PO SCH ×2 (09:22→20:03)
[2022-03-08] MEDS: Acetaminophen 325 MG TABLET PO PRN (12:02)
[2022-03-08] MEDS: carvediloL 25 MG TABLET PO SCH ×2 (13:05→16:42)
[2022-03-08] MEDS ORDERED: *HR* Heparin 10,000 UNIT/10 ML VIAL IV PRN (13:13)
[2022-03-08] MEDS: Fluconazole 100 MG TABLET PO SCH (14:20)
[2022-03-08] MEDS: NIFEdipine XL (24 HR) 60 MG TAB.ER.24 PO SCH (14:20)
[2022-03-08] MEDS: polyethylene glycoL 3350 17 GM POWD.PACK PO SCH (14:20)
[2022-03-08] MEDS: Darbepoetin 100 MCG/0.5 ML SYRINGE SQ SCH (14:21)
[2022-03-09 07:22] LABS: Basophils # 0.1 K/mcL (0.0-0.2); Basophils % 1.4 %; Eosinophils # 0.5 K/mcL (0.0-0.6); Hematocrit 27.6 % (37.5-50.1); Immature Granulocytes % 0.5 % (0-4); Lymphocytes # 1.3 K/mcL (0.6-4.6); Lymphocytes % 19.5 %; Mean Corpuscular HGB Conc 32.6 g/dL (31.6-35.5); Mean Corpuscular Hemoglobin 28.1 pg (28.0-33.3); Mean Corpuscular Volume 86.3 fL (83.0-100.0); Mean Platelet Volume 9.1 fL (9.4-12.4); Monocytes # 0.7 K/mcL (0.0-1.3); Monocytes % 9.9 %; Neutrophils # 4.1 K/mcL (1.6-8.9); Platelet Count 232 K/mcL (140-400); Red Cell Distribution Width 13.2 % (11.5-14.5); Segmented Neutrophils % 61.7 %; White Blood Count 6.6 K/mcL (4.3-11.1)
[2022-03-09 07:41] LABS: Calcium 8.2 mg/dL (8.6-10.3)
[2022-03-09] MEDS: Insulin LISPRO 300 UNITS/3 ML VIAL SUBQ SCH ×4 (07:42→21:19)
[2022-03-09] MEDS: polyethylene glycoL 3350 17 GM POWD.PACK PO SCH (08:57)
[2022-03-09] MEDS: Insulin DETEMIR 100 UNIT/ML X5UNITS SUBQ SCH (08:58)
[2022-03-09] MEDS: Doxycycline 100 MG CAPSULE PO SCH ×2 (08:58→21:07)
[2022-03-09] MEDS: Ondansetron 4 MG/2 ML VIAL IVP PRN (08:58)
[2022-03-09] MEDS: carvediloL 25 MG TABLET PO SCH ×2 (08:58→18:59)
[2022-03-09] MEDS: Sennosides/Docusate Sodium TABLET PO SCH ×2 (08:58→21:07)
[2022-03-09] MEDS: NIFEdipine XL (24 HR) 60 MG TAB.ER.24 PO SCH (08:58)
[2022-03-09] MEDS: Furosemide 40 MG TABLET PO SCH ×2 (08:58→18:58)
[2022-03-09] MEDS: Calcium Acetate 667 MG CAPSULE PO SCH ×3 (08:58→18:55)
[2022-03-09] MEDS: Bisacodyl 10 MG RECTAL SUPPOSITORY RC SCH (08:59)
[2022-03-09] MEDS: Melatonin 3 MG TABLET PO PRN (21:07)
[2022-03-10] MEDS: Ondansetron 4 MG/2 ML VIAL IVP PRN (08:31)
[2022-03-10] MEDS: polyethylene glycoL 3350 17 GM POWD.PACK PO SCH (08:31)
[2022-03-10] MEDS: NIFEdipine XL (24 HR) 60 MG TAB.ER.24 PO SCH (08:32)
[2022-03-10] MEDS: Sennosides/Docusate Sodium TABLET PO SCH ×2 (08:32→20:39)
[2022-03-10] MEDS: Furosemide 40 MG TABLET PO SCH ×2 (08:32→17:56)
[2022-03-10] MEDS: carvediloL 25 MG TABLET PO SCH ×2 (08:32→17:56)
[2022-03-10] MEDS: Calcium Acetate 667 MG CAPSULE PO SCH ×3 (08:32→17:56)
[2022-03-10] MEDS: Doxycycline 100 MG CAPSULE PO SCH ×2 (08:32→20:40)
[2022-03-10] MEDS: Bisacodyl 10 MG RECTAL SUPPOSITORY RC SCH (08:33)
[2022-03-10] MEDS: Insulin LISPRO 300 UNITS/3 ML VIAL SUBQ SCH ×4 (08:34→20:55)
[2022-03-10] MEDS: Insulin DETEMIR 100 UNIT/ML X5UNITS SUBQ SCH (08:48)
[2022-03-10 11:40] LABS: Basophils # 0.1 K/mcL (0.0-0.2); Basophils % 1.3 %; Eosinophils # 0.6 K/mcL (0.0-0.6); Eosinophils % 9.3 %; Hemoglobin 8.9 g/dL (12.9-16.9); Immature Granulocytes % 0.3 % (0-4); Lymphocytes # 1.1 K/mcL (0.6-4.6); Mean Corpuscular HGB Conc 31.8 g/dL (31.6-35.5); Mean Corpuscular Hemoglobin 27.2 pg (28.0-33.3); Mean Corpuscular Volume 85.6 fL (83.0-100.0); Mean Platelet Volume 9.2 fL (9.4-12.4); Monocytes # 0.6 K/mcL (0.0-1.3); Monocytes % 10.3 %; Neutrophils # 3.6 K/mcL (1.6-8.9); Platelet Count 247 K/mcL (140-400); Red Blood Count 3.27 M/mcL (4.19-5.50); Red Cell Distribution Width 13.1 % (11.5-14.5); Segmented Neutrophils % 60.8 %; White Blood Count 5.9 K/mcL (4.3-11.1)
[2022-03-10 11:57] LABS: Calcium 8.4 mg/dL (8.6-10.3); Potassium 3.9 mEq/L (3.5-5.1)
[2022-03-10] MEDS: Acetaminophen 325 MG TABLET PO PRN (12:12)
[2022-03-10] MEDS: Dextrose Gel 15 GM/37.5 ML TUBE PO PRN (14:55)
[2022-03-10] MEDS: Melatonin 3 MG TABLET PO PRN (20:40)
[2022-03-11 04:52] LABS: Calcium 8.1 mg/dL (8.6-10.3); Potassium 4.1 mEq/L (3.5-5.1)
[2022-03-11] MEDS ORDERED: 0.9 % Sodium Chloride 250 ML IVC PRN (07:26)
[2022-03-11] MEDS ORDERED: 0.9 % Sodium Chloride 2,000 ML PRIME SCH (07:30)
[2022-03-11] MEDS: polyethylene glycoL 3350 17 GM POWD.PACK PO SCH (07:54)
[2022-03-11] MEDS: Doxycycline 100 MG CAPSULE PO SCH (07:55)
[2022-03-11] MEDS: Furosemide 40 MG TABLET PO SCH ×2 (07:55→17:02)
[2022-03-11] MEDS: Sennosides/Docusate Sodium TABLET PO SCH (07:55)
[2022-03-11] MEDS: Calcium Acetate 667 MG CAPSULE PO SCH ×3 (07:55→17:02)
[2022-03-11] MEDS: Bisacodyl 10 MG RECTAL SUPPOSITORY RC SCH (07:58)
[2022-03-11] MEDS: Insulin LISPRO 300 UNITS/3 ML VIAL SUBQ SCH ×3 (07:59→15:43)
[2022-03-11] MEDS: Ondansetron 4 MG/2 ML VIAL IVP PRN ×2 (08:04→17:05)
[2022-03-11] MEDS: Insulin DETEMIR 100 UNIT/ML X5UNITS SUBQ SCH (08:32)
[2022-03-11] MEDS: Acetaminophen 325 MG TABLET PO PRN (09:29)
[2022-03-11] MEDS: carvediloL 25 MG TABLET PO SCH ×2 (13:32→17:02)
[2022-03-11] MEDS: NIFEdipine XL (24 HR) 60 MG TAB.ER.24 PO SCH (13:35)
[2022-03-11 15:48] VITALS: BP 157/75; PULSE 80; TEMP 98; O2SAT 97
[2022-03-11] MEDS: Dextrose Gel 15 GM/37.5 ML TUBE PO PRN ×2 (15:57→16:39)
== END 2022-03-11 19:58 | DRG 981 ==
LOC: 2NNU → SUATTDRO 06:26 → 2ANU 02-20 16:12
PROVIDERS: ADMIT Internal Medicine; ATTEND Family Medicine
PROC: ENDOEBX (2022-02-20 13:55)
PROC: IRPERMA (2022-03-04 12:00)